=== PATIENT | female | born 2005 | race African-American/Black ===

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

== ENCOUNTER 2024-04-13 20:45 | Emergency (ER) | payer BC | END 2024-04-13 22:05 | disposition home or self-care (01) | LOC: MW.ED 20:45 | DX: R04.2 Hemoptysis (principal) | CPT/HCPCS: 99283 ==